=== PATIENT | female | born 1995 | race Caucasian/White ===

== ENCOUNTER 2020-01-30 13:35 | Inpatient (IN) | payer BC ==
[2020-01-30] MEDS ORDERED: Ondansetron 4 MG/2 ML SDV IVPUSH PRN (13:43)
[2020-01-30] MEDS ORDERED: Sodium Chloride 0.9% 10 ML Syringe FLUSH PRN (13:43)
[2020-01-30] MEDS ORDERED: Nalbuphine 10 MG/ML Syringe IVPUSH PRN (13:43)
[2020-01-30] MEDS ORDERED: Misoprostol 100 MCG Tab VAG PRN (13:43)
[2020-01-30] MEDS ORDERED: Oxytocin/Lactated Ringers 10 UNIT/1,000 ML BAG IV SCH ×2 (13:45)
--- NOTE | 2020-01-30 13:45 | PCM.LDHP ---
L&D History of Present Illness - General Date of Service: 01/30/20 Admit Problem/Dx: Patient Status Order with Admit Dx/Problem 01/30/20 13:43 Patient Status [ADT] Routine Admission Diagnosis/Problem Admission Diagnosis/Problem complications Source of Information: Patient History Limitations: Reports: No Limitations - History of Present Illness Introduction:: Patient is a 24-year-old at 38-2/7 weeks gestation. Patient seen for routine clinic appointment today. Has been consistently measuring about 2 cm below gestational age, but within accepted ranges. However, patient's overall weight gain has been less than then normal period started the at 127 and is currently 139 pounds. Most notable is that since about 33 weeks has had no increase in weight. Ultrasound done today to follow up this finding and showed overall AB measured at the 12th percentile, but the abdominal circumference at the 10th. Concern was for potential growth restriction. She was counseled on this finding and instructed to present here for induction. Doing well otherwise Past Medical History Respiratory History: Reports: Asthma Gastrointestinal History: Reports: Gastritis (history of), GERD Psychiatric History: Reports: Anxiety, Depression - Past Surgical History HEENT Surgical History: Reports: Myringotomy w Tube(s) GI Surgical History: Reports: Cholecystectomy, EGD Social & Family History - Family History Family Medical History: Noncontributory - Tobacco Use Smoking Status *Q: Never Smoker - Alcohol Use Alcohol Use History: No - Recreational Drug Use Recreational Drug Use: No H&P Review of Systems - Review of Systems: Review Of Systems: See Below General: Reports: No Symptoms Pulmonary: Reports: No Symptoms Cardiovascular: Reports: No Symptoms Gastrointestinal: Reports: No Symptoms Genitourinary: Reports: No Symptoms Musculoskeletal: Reports: No Symptoms Psychiatric: Reports: No Symptoms Neurological: Reports: No Symptoms L&D Exam - Exam Exam: See Below - OB Specific Contraction Intensity: Irritability Movement: Active Heart Tones: Present Heart Tones per Min: 130 Heart Rate (FHR) Variability: Moderate (6-25 bmp) Presentation: Vertex - Goodrich Score Goodrich Score Cervix Position: Midposition Goodrich Score Consistency: Soft Goodrich Score Effacement: 51-70% Goodrich Score Dilation: 1-2 cm Goodrich Score Infant's Station: -3 Goodrich Score Total: 6 - Exam General: Alert, Oriented, Cooperative Lungs: Clear to Auscultation, Normal Respiratory Effort Cardiovascular: Regular Rate, Regular Rhythm GI/Abdominal Exam: Soft, Non-Tender Genitourinary: Normal external exam Extremities: Normal Inspection Skin: Warm, Dry, Intact - Patient Data Result Diagrams: 01/30/20 13:55 - Problem List (1) 38 weeks gestation of SNOMED Code(s): 57209297 ICD Code: Z3A.38 - 38 WEEKS GESTATION OF Status: Acute Current Visit: Yes (2) Poor growth affecting management of mother SNOMED Code(s): 526798963 ICD Code: O36.5990 - MATERN CARE FOR OTH OR SUSP POOR FETL GRTH, UNSP TRI, UNSP Status: Acute Current Visit: Yes Qualifiers: Fetus number: single or unspecified fetus Trimester: third trimester Qualified Code(s): O36.5930 - Maternal care for other known or suspected poor growth, third trimester, not applicable or unspecified (3) Low maternal weight gain SNOMED Code(s): 60462011 ICD Code: O26.10 - LOW WEIGHT GAIN IN , UNSPECIFIED TRIMESTER Status: Acute Current Visit: Yes Qualifiers: Trimester: third trimester Qualified Code(s): O26.13 - Low weight gain in , third trimester Problem List Initiated/Reviewed/Updated: Yes Orders Last 24hrs: Active Orders 24 hr Category Date Time Status Patient Status [ADT] Routine ADT 01/30/20 13:43 Ordered Communication Order [RC] ASDIRECTED Care 01/30/20 13:43 Ordered Communication Order [RC] ASDIRECTED Care 01/30/20 13:43 Ordered Communication Order [RC] ASDIRECTED Care 01/30/20 13:43 Ordered Heart Tones [RC] ASDIRECTED Care 01/30/20 13:44 Ordered Non Stress Test [RC] PER UNIT ROUTINE Care 01/30/20 13:43 Ordered Notify Provider [RC] ASDIRECTED Care 01/30/20 13:43 Ordered Notify Provider [RC] PRN Care 01/30/20 13:43 Ordered Peripheral IV Care [RC] . DIRECTED Care 01/30/20 13:44 Ordered Up ad Najma [RC] ASDIRECTED Care 01/30/20 13:44 Ordered Vaginal Exam [RC] ASDIRECTED Care 01/30/20 13:43 Ordered Vital Signs [RC] ASDIRECTED Care 01/30/20 13:43 Ordered Regular Diet [DIET] Diet 01/30/20 Lunch Ordered CBC W/O DIFF,HEMOGRAM [HEME] Routine Lab 01/30/20 13:43 Ordered RAPID PLASMA REAGIN,RPR [CHEM] Routine Lab 01/30/20 13:43 Ordered TYPE AND SCREEN [BBK] Routine Lab 01/30/20 13:43 Ordered Lactated Ringers [Ringers, Lactated] 1,000 ml Med 01/30/20 13:45 Ordered IV ASDIRECTED Nalbuphine [Nubain] Med 01/30/20 13:43 Ordered 10 mg IVPUSH Q2H PRN Ondansetron [Zofran] Med 01/30/20 13:43 Ordered 4 mg IVPUSH Q4H PRN Oxytocin/Lactated Ringers [Pitocin in LR 10 Units/1,000 Med 01/30/20 13:45 Ordered ML] 10 unit in 1,000 ml IV .CONTINUOUS Oxytocin/Lactated Ringers [Pitocin in LR 10 Units/1,000 Med 01/30/20 13:45 Ordered ML] 10 unit in 1,000 ml IV TITRATE Sodium Chloride 0.9% [Saline Flush] Med 01/30/20 13:43 Ordered 10 ml FLUSH ASDIRECTED PRN miSOPROStoL [Cytotec] Med 01/30/20 13:43 Ordered 25 mcg VAG Q4H PRN Electronic Heart Tones Ext w TOCO [WOMSER] Oth 01/30/20 13:43 Ordered Routine Electronic Heart Tones Internal [WOMSER] Per Unit Oth 01/30/20 13:43 Ordered Routine Medication Administration Instruction [OM.PC] Routine Oth 01/30/20 13:43 Ordered Peripheral IV Insertion Adult [OM.PC] Routine Oth 01/30/20 13:43 Ordered Assessment/Plan Comment:: * Labs to be done * GBS negative, no need for antibiotics * IOL to be done first with cytotec. Switch to pitocin/AROM when able * Pain management per patient preference * Anticipate
[2020-01-30] MEDS ORDERED: Calcium Carbonate 500 MG Tab.Chew PO PRN (14:27)
[2020-01-30] MEDS: Misoprostol 25 MCG (1/4 of 100 MCG) Tab VAG PRN ×3 (14:45→22:56)
--- NOTE | 2020-01-30 19:04 | PCM.PNLD ---
Labor Progress Note - VS & Meds Vital Signs: Last Vital Signs Temp 37.1 C 01/30/20 13:43 Pulse 89 01/30/20 13:43 Resp 18 01/30/20 13:43 BP 121/83 01/30/20 13:43 Pulse Ox 100 01/30/20 13:43 Active Medications: Current Medications Calcium Carbonate/Glycine (Tums) 1,000 mg PO Q2HR PRN PRN Reason: Indigestion Lactated Ringer's (Ringers, Lactated) 1,000 mls @ 40 mls/hr IV ASDIRECTED INDU Oxytocin/Lactated Ringer's (Pitocin In Lr 10 Units/1,000 Ml) 10 unit in 1,000 mls @ 12 mls/hr IV TITRATE INDU; Protocol Oxytocin/Lactated Ringer's (Pitocin In Lr 10 Units/1,000 Ml) 10 unit in 1,000 mls @ 500 mls/hr IV .CONTINUOUS INDU Misoprostol (Cytotec) 25 mcg VAG Q4H PRN PRN Reason: cervical ripening Last Admin: 01/30/20 18:59 Dose: 25 mcg Nalbuphine HCl (Nubain) 10 mg IVPUSH Q2H PRN PRN Reason: Pain Ondansetron HCl (Zofran) 4 mg IVPUSH Q4H PRN PRN Reason: Nausea/Vomiting Sodium Chloride (Saline Flush) 10 ml FLUSH ASDIRECTED PRN PRN Reason: Keep Vein Open Discontinued Medications Misoprostol (Cytotec) 25 mcg VAG Q4H PRN PRN Reason: cervical ripening - Uterine Contractions Uterine Monitoring Mode: External [place] Contraction Intensity: Irritability Uterine Resting Tone: Soft - Monitoring Monitor Mode: External Ultrasound Heart Rate (FHR) Baseline: 120 Heart Rate (FHR) Variability: Moderate (6-25 bmp) Accelerations: Present, 15x15 Decelerations: None Strip Review: Category I - Vaginal Exam Dilation (cm): 1.5 Effacement (Percent): 75 Station: Ballotable Cervical Position: Midposition - Labor Progress (Free Text) Labor Progress: Doing well. Feeling mild cramping with contractions. Will place 2nd dose of cytotec. Continue current plan otherwise per H&P
[2020-01-30] MEDS ORDERED: fentaNYL 100 MCG/2 ML SDV EPIDUR PRN (22:24)
[2020-01-30] MEDS ORDERED: Bupivacaine/fentaNYL/NS 100 ML Bag EPIDUR PRN (22:24)
[2020-01-30] MEDS ORDERED: diphenhydrAMINE 50 MG/ML SDV IVPUSH PRN (22:24)
[2020-01-31] MEDS ORDERED: Lidocaine 1.5% with EPINEPHrine 1:200,000 5 ML Amp ONE
[2020-01-31] MEDS: Lactated Ringers 1,000 ML IV SCH ×2 (03:14→05:20)
--- NOTE | 2020-01-31 05:09 | PCM.PREANE ---
Preanesthetic Assessment - Procedure Proposed Procedure: Continuous labor epidural - Anesthesia/Transfusion/Family Hx Anesthesia History: Prior Anesthesia Reaction Other Type of Anesthesia Reaction Comment: Hallucinations Transfusion History: No Prior Transfusion(s) - Review of Systems General: No Symptoms Pulmonary: No Symptoms Cardiovascular: No Symptoms Gastrointestinal: No Symptoms Neurological: No Symptoms Other: Reports: None - Physical Assessment Vital Signs: Last Vital Signs Temp 98.7 F 01/30/20 13:43 Pulse 89 01/30/20 13:43 Resp 18 01/30/20 13:43 BP 121/83 01/30/20 13:43 Pulse Ox 100 01/30/20 13:43 Height: 1.57 m Weight: 63.503 kg ASA Class: 2 Mental Status: Alert & Oriented x3 Airway Class: Mallampati = 2 Dentition: Reports: Normal Dentition Thyro-Mental Finger Breadths: 3 Mouth Opening Finger Breadths: 3 ROM/Head Extension: Full Lungs: Clear to Auscultation, Normal Respiratory Effort Cardiovascular: Regular Rate, Regular Rhythm - Lab Values: Laboratory Last Values WBC 6.62 K/mm3 (3.98-10.04) 01/30/20 13:55 RBC 4.32 M/mm3 (3.98-5.22) 01/30/20 13:55 Hgb 12.5 gm/dl (11.2-15.7) 01/30/20 13:55 Hct 37.0 % (34.1-44.9) 01/30/20 13:55 MCV 85.6 fl (79.4-94.8) 01/30/20 13:55 MCH 28.9 pg (25.6-32.2) 01/30/20 13:55 MCHC 33.8 g/dl (32.2-35.5) 01/30/20 13:55 RDW Std Deviation 39.6 fL (36.4-46.3) 01/30/20 13:55 Plt Count 222 K/mm3 (182-369) 01/30/20 13:55 MPV 8.9 fl (9.4-12.3) L 01/30/20 13:55 RPR Non-reactive (NONREACTIVE) 01/30/20 13:55 Blood Type A POSITIVE 01/30/20 13:55 Gel Antibody Screen Negative 01/30/20 13:55 - Allergies Allergies/Adverse Reactions: Allergies Allergy/AdvReac Type Severity Reaction Status Date / Time morphine Allergy Mild Other Verified 01/30/20 14:27 pseudoephedrine Allergy Mild Other Verified 01/30/20 14:27 [From [facility]] - Acknowledgements Anesthesia Type Planned: Epidural Pt an Appropriate Candidate for the Planned Anesthesia: Yes Alternatives and Risks of Anesthesia Discussed w Pt/Guardian: Yes Pt/Guardian Understands and Agrees with Anesthesia Plan: Yes PreAnesthesia Questionnaire Respiratory History: Reports: Asthma Gastrointestinal History: Reports: Gastritis (history of), GERD Genitourinary History: Reports: UTI, Recurrent MRI TECH History: Reports: , Spontaneous , Other (See Below) Other OB/BYN History: Dysmenorrhea Psychiatric History: Reports: Anxiety, Depression - Past Surgical History HEENT Surgical History: Reports: Myringotomy w Tube(s) GI Surgical History: Reports: Cholecystectomy, EGD - SUBSTANCE USE Smoking Status *Q: Never Smoker Tobacco Use Within Last Twelve Months: No Second Hand Smoke Exposure: No Recreational Drug Use History: No - HOME MEDS Home Medications: Home Meds Albuterol Sulfate [Albuterol Sulfate Hfa] 8.5 gm IH ASDIRECTED PRN 01/30/20 [ History] Cetirizine [ZyrTEC] 10 mg PO DAILY 01/30/20 [History] Ondansetron [Zofran] 8 mg PO Q8H 01/30/20 [History] Prenat 115/Iron Fum/Folic/Dss [ 19 Tablet] 1 tab PO DAILY 01/30/20 [ History] polyethylene glycoL 3350 [MiraLAX] 17 gm PO ASDIRECTED PRN 01/30/20 [History] - CURRENT (IN HOUSE) MEDS Current Meds: Current Medications Calcium Carbonate/Glycine (Tums) 1,000 mg PO Q2HR PRN PRN Reason: Indigestion Diphenhydramine HCl (Benadryl) 25 mg IVPUSH Q6H PRN PRN Reason: pruritis Fentanyl (Sublimaze) 100 mcg EPIDUR Q3H PRN PRN Reason: Pain Fentanyl/Bupivacaine HCl (Fentanyl/Bupivacaine/Ns 2 Mcg-0.125% 100 Ml) 100 ml EPIDUR ASDIRECTED PRN PRN Reason: Pain Lactated Ringer's (Ringers, Lactated) 1,000 mls @ 40 mls/hr IV ASDIRECTED INDU Last Infusion: 01/31/20 04:40 Dose: 999 mls/hr Oxytocin/Lactated Ringer's (Pitocin In Lr 10 Units/1,000 Ml) 10 unit in 1,000 mls @ 12 mls/hr IV TITRATE INDU; Protocol Last Titration: 01/31/20 04:04 Dose: 4 munits/min, 24 mls/hr Oxytocin/Lactated Ringer's (Pitocin In Lr 10 Units/1,000 Ml) 10 unit in 1,000 mls @ 500 mls/hr IV .CONTINUOUS INDU Nalbuphine HCl (Nubain) 10 mg IVPUSH Q2H PRN PRN Reason: Pain Last Admin: 01/31/20 03:20 Dose: 10 mg Ondansetron HCl (Zofran) 4 mg IVPUSH Q4H PRN PRN Reason: Nausea/Vomiting Last Admin: 01/31/20 03:18 Dose: 4 mg Sodium Chloride (Saline Flush) 10 ml FLUSH ASDIRECTED PRN PRN Reason: Keep Vein Open Discontinued Medications Misoprostol (Cytotec) 25 mcg VAG Q4H PRN PRN Reason: cervical ripening Misoprostol (Cytotec) 25 mcg VAG Q4H PRN PRN Reason: cervical ripening Last Admin: 01/30/20 22:56 Dose: 25 mcg
[2020-01-31] MEDS ORDERED: Misoprostol 200 MCG Tab ONE (07:29)
[2020-01-31] MEDS ORDERED: Methylergonovine 0.2 MG/1 ML Amp ONE (07:34)
[2020-01-31] MEDS ORDERED: Methylergonovine 0.2 MG/1 ML Amp IM STA (07:56)
[2020-01-31] MEDS ORDERED: Misoprostol 200 MCG Tab PO STA (07:56)
[2020-01-31] MEDS ORDERED: ceFAZolin 2 GM in Premix Bag 1 BAG IV ONE (07:58)
--- NOTE | 2020-01-31 07:59 | PCM.DEL ---
L & D Note - General Info Date of Service: 01/31/20 - Delivery Note Labor: Induced by Oxytocin Cervical Ripening Method: Misoprostil Delivery Outcome: Livebirth Delivery Method: Spontaneous Vaginal Delivery-Single Delivery Mode: Spontaneous Presentation: Right Occiput Anterior (SAMANTHA) Nuchal Cord: None Anesthesia Type: Epidural Amniotic Fluid Description: Clear Episiotomy Type: None Laceration: 1st Degree Suture type: Vicryl Suture size: 2-0 Placenta: Intact, Spontaneous Cord: 3 Vessels Estimated Blood Loss: 600 Resuscitation Needed: Yes : Bulb Syringe, Stimulated, Warmed, [place] Used, Warmer Used Delivery Comments (Free Text/Narrative):: Patient found to be complete and began pushing. With maternal pushing effort head delivered from SAMANTHA presentation. No nuchal cord present. With gentle downward traction shoulders and body delivered. Infant placed on maternal abdomen. Cord clamped and cut. Cord blood obtained. Placenta allowed time to separate and expelled intact. Patient with poor uterine tone and associated continued bleeding after placenta delivery. Eventually responded to 600 mcg of buccal Cytotec, 0.2 mg of IM Methergine, and 1,000 of tranexamic acid in addition to fundal massage and sweeps of uterine cavity. Patient given dose of Ancef for this. Afterwards perineum showed 1st degree laceration which was repaired with interrupted suture of 0 Vicryl. - General Info Date of Service: 01/31/20 - Patient Data Vitals - Most Recent: Last Vital Signs Temp 37.1 C 01/30/20 13:43 Pulse 89 01/30/20 13:43 Resp 18 01/30/20 13:43 BP 121/83 01/30/20 13:43 Pulse Ox 100 01/30/20 13:43 Weight - Most Recent: 63.503 kg I&O - Last 24 Hours: Intake & Output 01/30/20 01/31/20 01/31/20 22:59 06:59 14:59 Intake Total 0 1000 Balance 0 1000 Lab Results Last 24 Hours: - Problem List & Annotations (1) 38 weeks gestation of SNOMED Code(s): 88972278 Code(s): Z3A.38 - 38 WEEKS GESTATION OF Status: Acute Current Visit: Yes (2) Poor growth affecting management of mother SNOMED Code(s): 221396593 Code(s): O36.5990 - MATERN CARE FOR OTH OR SUSP POOR FETL GRTH, UNSP TRI, UNSP Status: Acute Current Visit: Yes Qualifiers: Fetus number: single or unspecified fetus Trimester: third trimester Qualified Code(s): O36.5930 - Maternal care for other known or suspected poor growth, third trimester, not applicable or unspecified (3) Low maternal weight gain SNOMED Code(s): 58371387 Code(s): O26.10 - LOW WEIGHT GAIN IN , UNSPECIFIED TRIMESTER Status: Acute Current Visit: Yes Qualifiers: Trimester: third trimester Qualified Code(s): O26.13 - Low weight gain in , third trimester (4) Vaginal delivery SNOMED Code(s): 338511046 Code(s): O80 - ENCOUNTER FOR FULL-TERM UNCOMPLICATED DELIVERY Status: Acute Current Visit: Yes (5) hemorrhage SNOMED Code(s): 10415514 Code(s): O72.1 - OTHER IMMEDIATE HEMORRHAGE Status: Acute Current Visit: Yes Qualifiers: hemorrhage type: other immediate Qualified Code(s): O72.1 - Other immediate hemorrhage - Problem List Review Problem List Initiated/Reviewed/Updated: Yes - My Orders Last 24 Hours: My Active Orders 01/30/20 13:43 Patient Status [ADT] Routine Communication Order [RC] ASDIRECTED Communication Order [RC] ASDIRECTED Communication Order [RC] ASDIRECTED Notify Provider [RC] ASDIRECTED Notify Provider [RC] PRN Nalbuphine [Nubain] 10 mg IVPUSH Q2H PRN Ondansetron [Zofran] 4 mg IVPUSH Q4H PRN Sodium Chloride 0.9% [Saline Flush] 10 ml FLUSH ASDIRECTED PRN Electronic Heart Tones Ext w TOCO [WOMSER] Routine Electronic Heart Tones Internal [WOMSER] Per Unit Routine Medication Administration Instruction [OM.PC] Routine Peripheral IV Insertion Adult [OM.PC] Routine 01/30/20 13:44 Up ad Najma [RC] ASDIRECTED 01/30/20 13:45 Lactated Ringers [Ringers, Lactated] 1,000 ml IV ASDIRECTED Oxytocin/Lactated Ringers [Pitocin in LR 10 Units/1,000 ML] 10 unit in 1,000 ml IV .CONTINUOUS Oxytocin/Lactated Ringers [Pitocin in LR 10 Units/1,000 ML] 10 unit in 1,000 ml IV TITRATE 01/30/20 14:27 Calcium Carbonate [Tums] 1,000 mg PO Q2HR PRN 01/30/20 Lunch Regular Diet [DIET] 01/31/20 07:56 Methylergonovine [Methergine] 0.2 mg IM NOW STA Tranexamic Acid [Cyklokapron] 1,000 mg IVPUSH ONETIME ONE miSOPROStoL [Cytotec] 600 mcg PO NOW STA 01/31/20 07:58 ceFAZolin [Ancef] 2 gm Premix Bag 1 bag IV ONETIME - Assessment Assessment:: PPD#0 - Plan Plan:: * Will monitor bleeding closely * Breast feeding * Routine care * Discharge home in 1-2 days
[2020-01-31] MEDS ORDERED: Witch Hazel Medicated Pads 40/Jar TOP PRN (08:18)
[2020-01-31] MEDS ORDERED: Acetaminophen 325 MG Tab PO PRN (08:18)
[2020-01-31] MEDS ORDERED: Benzocaine/Menthol 20%-0.5% Spray 56 GM Canister TOP PRN (08:18)
[2020-01-31] MEDS ORDERED: Ondansetron 4 MG/2 ML SDV IVPUSH ONE (08:34)
[2020-01-31] MEDS: Docusate Sodium 100 MG Cap PO PRN ×2 (10:25→16:51)
[2020-01-31] MEDS: Ibuprofen 600 MG Tab PO PRN ×2 (10:25→16:50)
--- NOTE | 2020-02-01 07:02 | PCM.PNPP ---
- General Info Date of Service: 02/01/20 Functional Status: Reports: Pain Controlled, Tolerating Diet, Ambulating, Urinating - Review of Systems General: Reports: No Symptoms Pulmonary: Reports: No Symptoms Cardiovascular: Reports: No Symptoms Gastrointestinal: Reports: No Symptoms Genitourinary: Reports: No Symptoms Musculoskeletal: Reports: No Symptoms Neurological: Reports: No Symptoms - Patient Data Vital Signs - Most Recent: Last Vital Signs Temp 36.5 C 02/01/20 04:15 Pulse 70 02/01/20 04:15 Resp 16 02/01/20 04:15 BP 101/58 L 02/01/20 04:15 Pulse Ox 99 02/01/20 04:15 Weight - Most Recent: 63.503 kg I&O - Last 24 Hours: Intake & Output 01/31/20 02/01/20 02/01/20 22:59 06:59 14:59 Intake Total 160 Balance 160 Med Orders - Current: Current Medications Acetaminophen (Tylenol) 650 mg PO Q4H PRN PRN Reason: mild pain or fever Benzocaine/Menthol (Dermoplast Pain Relief [place]) 0 gm TOP ASDIRECTED PRN PRN Reason: Perineal Comfort Measure Last Admin: 01/31/20 10:25 Dose: 1 can Docusate Sodium (Colace) 100 mg PO BID PRN PRN Reason: Constipation Last Admin: 01/31/20 16:51 Dose: 100 mg Ibuprofen (Motrin) 600 mg PO Q6H PRN PRN Reason: Mild pain or fever Last Admin: 01/31/20 16:50 Dose: 600 mg Witch Carine (Tucks) 1 pad TOP ASDIRECTED PRN PRN Reason: Perineal Comfort Measure Last Admin: 01/31/20 10:24 Dose: 1 container Discontinued Medications Calcium Carbonate/Glycine (Tums) 1,000 mg PO Q2HR PRN PRN Reason: Indigestion Diphenhydramine HCl (Benadryl) 25 mg IVPUSH Q6H PRN PRN Reason: pruritis Fentanyl (Sublimaze) 100 mcg EPIDUR Q3H PRN PRN Reason: Pain Last Admin: 01/31/20 05:17 Dose: 100 mcg Fentanyl/Bupivacaine HCl (Fentanyl/Bupivacaine/Ns 2 Mcg-0.125% 100 Ml) 100 ml EPIDUR ASDIRECTED PRN PRN Reason: Pain Last Admin: 01/31/20 05:18 Dose: 100 ml Lactated Ringer's (Ringers, Lactated) 1,000 mls @ 40 mls/hr IV ASDIRECTED INDU Last Infusion: 01/31/20 06:28 Dose: Infused Oxytocin/Lactated Ringer's (Pitocin In Lr 10 Units/1,000 Ml) 10 unit in 1,000 mls @ 12 mls/hr IV TITRATE INDU; Protocol Last Titration: 01/31/20 06:20 Dose: 6 munits/min, 36 mls/hr Oxytocin/Lactated Ringer's (Pitocin In Lr 10 Units/1,000 Ml) 10 unit in 1,000 mls @ 500 mls/hr IV .CONTINUOUS INDU Cefazolin Sodium/Dextrose 2 gm (/ Premix) 50 mls @ 100 mls/hr IV ONETIME ONE Stop: 01/31/20 08:27 Last Admin: 01/31/20 09:31 Dose: 100 mls/hr Lidocaine/Epinephrine (Xylocaine-Mpf 1.5% W/Epinephrine 1:200,000) 5 ml .ROUTE .STK-MED ONE Stop: 01/31/20 00:01 Methylergonovine Maleate (Methergine) Confirm Administered Dose 0.2 mg .ROUTE .STK-MED ONE Stop: 01/31/20 07:35 Last Admin: 01/31/20 07:34 Dose: 0.2 mg Methylergonovine Maleate (Methergine) 0.2 mg IM NOW STA Stop: 01/31/20 07:57 Last Admin: 01/31/20 08:15 Dose: Not Given Misoprostol (Cytotec) 25 mcg VAG Q4H PRN PRN Reason: cervical ripening Misoprostol (Cytotec) 25 mcg VAG Q4H PRN PRN Reason: cervical ripening Last Admin: 01/30/20 22:56 Dose: 25 mcg Misoprostol (Cytotec) Confirm Administered Dose 600 mcg .ROUTE .STK-MED ONE Stop: 01/31/20 07:30 Last Admin: 01/31/20 07:30 Dose: 600 mcg Misoprostol (Cytotec) 600 mcg PO NOW STA Stop: 01/31/20 07:57 Last Admin: 01/31/20 08:15 Dose: Not Given Nalbuphine HCl (Nubain) 10 mg IVPUSH Q2H PRN PRN Reason: Pain Last Admin: 01/31/20 03:20 Dose: 10 mg Ondansetron HCl (Zofran) 4 mg IVPUSH Q4H PRN PRN Reason: Nausea/Vomiting Last Admin: 01/31/20 03:18 Dose: 4 mg Ondansetron HCl (Zofran) 4 mg IVPUSH ONETIME ONE Stop: 01/31/20 08:35 Last Admin: 01/31/20 08:42 Dose: 4 mg Sodium Chloride (Saline Flush) 10 ml FLUSH ASDIRECTED PRN PRN Reason: Keep Vein Open Tranexamic Acid (Cyklokapron) Confirm Administered Dose 1,000 mg .ROUTE .STK- MED ONE Stop: 01/31/20 07:37 Last Admin: 01/31/20 07:41 Dose: 1,000 mg Tranexamic Acid (Cyklokapron) 1,000 mg IVPUSH ONETIME ONE Stop: 01/31/20 07:57 Last Admin: 01/31/20 08:15 Dose: Not Given - Infant Interaction Infant Disposition, : in Room with Family Interaction: Holding Feeding: Attempted ; Nursed Fair/Poor Support Person: - Recovery Exam Fundal Tone: Firm Fundal Level: 1 Fingerbreadths Below Umbilicus Fundal Placement: Midline Lochia Amount: Small Lochia Color: Rubra/Red Perineum Description: Intact, Minimal Bruising/Swelling Episiotomy/Laceration: None Bladder Status: Voiding Urinary Elimination: Voided - Exam General: Alert, Oriented, Cooperative GI/Abdominal Exam: Soft, Non-Tender Extremities: Normal Inspection Skin: Warm, Dry, Intact - Problem List & Annotations (1) 38 weeks gestation of SNOMED Code(s): 89531019 Code(s): Z3A.38 - 38 WEEKS GESTATION OF Status: Acute Current Visit: Yes (2) Poor growth affecting management of mother SNOMED Code(s): 043873258 Code(s): O36.5990 - MATERN CARE FOR OTH OR SUSP POOR FETL GRTH, UNSP TRI, UNSP Status: Acute Current Visit: Yes Qualifiers: Fetus number: single or unspecified fetus Trimester: third trimester Qualified Code(s): O36.5930 - Maternal care for other known or suspected poor growth, third trimester, not applicable or unspecified (3) Low maternal weight gain SNOMED Code(s): 87702051 Code(s): O26.10 - LOW WEIGHT GAIN IN , UNSPECIFIED TRIMESTER Status: Acute Current Visit: Yes Qualifiers: Trimester: third trimester Qualified Code(s): O26.13 - Low weight gain in , third trimester (4) Vaginal delivery SNOMED Code(s): 275288510 Code(s): O80 - ENCOUNTER FOR FULL-TERM UNCOMPLICATED DELIVERY Status: Acute Current Visit: Yes (5) hemorrhage SNOMED Code(s): 58528298 Code(s): O72.1 - OTHER IMMEDIATE HEMORRHAGE Status: Acute Current Visit: Yes Qualifiers: hemorrhage type: other immediate Qualified Code(s): O72.1 - Other immediate hemorrhage - Problem List Review Problem List Initiated/Reviewed/Updated: Yes - My Orders Last 24 Hours: My Active Orders 01/31/20 08:18 Activity as Tolerated [RC] PER UNIT ROUTINE Vital Signs [RC] 09,15,21,03 Acetaminophen [Tylenol] 650 mg PO Q4H PRN Benzocaine/Menthol [Dermoplast Pain Relief [place]] See Dose Instructions TOP ASDIRECTED PRN Docusate Sodium [Colace] 100 mg PO BID PRN Ibuprofen [Motrin] 600 mg PO Q6H PRN witch Carine [Tucks] 1 pad TOP ASDIRECTED PRN Assess Lochia [WOMSER] Per Unit Routine Assess Uterine Involution [WOMSER] Per Unit Routine Breast Pump [WOMSER] Per Unit Routine Heat Therapy [OM.PC] PRN Ice Therapy [OM.PC] Per Unit Routine Perineal Care [OM.PC] Per Unit Routine Peripheral IV Discontinue [OM.PC] Routine Sitz Bath [OM.PC] Per Unit Routine 01/31/20 Breakfast Regular Diet [DIET] 02/01/20 08:18 Heat Therapy [OM.PC] PRN - Assessment Assessment:: PPD#1 - Plan Plan:: * Breast feeding * Routine care * Feeling well after PPH * Discharge home tomorrow
--- NOTE | 2020-02-01 08:59 | PCM.DCSUM1 ---
Discharge Summary - Discharge Data Discharge Date: 02/01/20 Discharge Disposition: Home, Self-Care 01 Condition: Good - Referral to Home Health Primary Care Physician: Forrest Underwood MD - Discharge Diagnosis/Problem(s) (1) 38 weeks gestation of SNOMED Code(s): 04078199 ICD Code: Z3A.38 - 38 WEEKS GESTATION OF Status: Acute Current Visit: Yes (2) Poor growth affecting management of mother SNOMED Code(s): 783540739 ICD Code: O36.5990 - MATERN CARE FOR OTH OR SUSP POOR FETL GRTH, UNSP TRI, UNSP Status: Acute Current Visit: Yes Qualifiers: Fetus number: single or unspecified fetus Trimester: third trimester Qualified Code(s): O36.5930 - Maternal care for other known or suspected poor growth, third trimester, not applicable or unspecified (3) Low maternal weight gain SNOMED Code(s): 27695133 ICD Code: O26.10 - LOW WEIGHT GAIN IN , UNSPECIFIED TRIMESTER Status: Acute Current Visit: Yes Qualifiers: Trimester: third trimester Qualified Code(s): O26.13 - Low weight gain in , third trimester (4) Vaginal delivery SNOMED Code(s): 415042887 ICD Code: O80 - ENCOUNTER FOR FULL-TERM UNCOMPLICATED DELIVERY Status: Acute Current Visit: Yes (5) hemorrhage SNOMED Code(s): 95235560 ICD Code: O72.1 - OTHER IMMEDIATE HEMORRHAGE Status: Acute Current Visit: Yes Qualifiers: hemorrhage type: other immediate Qualified Code(s): O72.1 - Other immediate hemorrhage - Patient Summary/Data Complications: None Consults: None Recommended Follow-up Testing/Procedures: Follow up in 3 weeks for check Hospital Course: 24 y/o at 38 2/7 wks who presented for IOL for concerns of IUGR on late growth US. Induction done with cytotec and pitocin. Progressed well to complete dilation. Underwent an vaginal delivery which was notable for PPH. See delivery note for full details. did well and was discharged home on PPD#1 - Patient Instructions Diet: Regular Diet as Tolerated Activity: As Tolerated Activity, Other: Pelvic rest for 6 weeks Driving: May Drive Today Showering/Bathing: May Shower Showering/Bathing, Other: May Bathe Notify Provider of: Fever, Increased Pain, Swelling and Redness, Drainage, Nausea and/or Vomiting - Discharge Plan *PRESCRIPTION DRUG MONITORING PROGRAM REVIEWED*: No *COPY OF PRESCRIPTION DRUG MONITORING REPORT IN PATIENT NIKHIL: No Home Medications: Home Meds Albuterol Sulfate [Albuterol Sulfate Hfa] 8.5 gm IH ASDIRECTED PRN 01/30/20 [ History] Cetirizine [ZyrTEC] 10 mg PO DAILY 01/30/20 [History] Ondansetron [Zofran] 8 mg PO Q8H 01/30/20 [History] Prenat 115/Iron Fum/Folic/Dss [ 19 Tablet] 1 tab PO DAILY 01/30/20 [ History] polyethylene glycoL 3350 [MiraLAX] 17 gm PO ASDIRECTED PRN 01/30/20 [History] Docusate Sodium [Colace] 100 mg PO BID PRN cap 02/01/20 [Rx] Ibuprofen [Motrin] 600 mg PO Q6H PRN tablet 02/01/20 [Rx] Patient Handouts: Tips for a Good Latch, [id number], Care After Vaginal Delivery Referrals: Lakisha Hurtado MD [Physician] - (3 weeks for check - can be telemed) - Discharge Summary/Plan Comment DC Time >30 min.: No - Patient Data Vitals - Most Recent: Last Vital Signs Temp 36.6 C 02/01/20 08:30 Pulse 74 02/01/20 08:30 Resp 14 02/01/20 08:30 BP 109/82 02/01/20 08:30 Pulse Ox 97 02/01/20 08:30 Weight - Most Recent: 63.503 kg I&O - Last 24 hours: Intake & Output 01/31/20 02/01/20 02/01/20 22:59 06:59 14:59 Intake Total 160 Balance 160 Med Orders - Current: Current Medications Acetaminophen (Tylenol) 650 mg PO Q4H PRN PRN Reason: mild pain or fever Benzocaine/Menthol (Dermoplast Pain Relief [facility]) 0 gm TOP ASDIRECTED PRN PRN Reason: Perineal Comfort Measure Last Admin: 01/31/20 10:25 Dose: 1 can Docusate Sodium (Colace) 100 mg PO BID PRN PRN Reason: Constipation Last Admin: 01/31/20 16:51 Dose: 100 mg Ibuprofen (Motrin) 600 mg PO Q6H PRN PRN Reason: Mild pain or fever Last Admin: 01/31/20 16:50 Dose: 600 mg [place] (Tucks) 1 pad TOP ASDIRECTED PRN PRN Reason: Perineal Comfort Measure Last Admin: 01/31/20 10:24 Dose: 1 container Discontinued Medications Calcium Carbonate/Glycine (Tums) 1,000 mg PO Q2HR PRN PRN Reason: Indigestion Diphenhydramine HCl (Benadryl) 25 mg IVPUSH Q6H PRN PRN Reason: pruritis Fentanyl (Sublimaze) 100 mcg EPIDUR Q3H PRN PRN Reason: Pain Last Admin: 01/31/20 05:17 Dose: 100 mcg Fentanyl/Bupivacaine HCl (Fentanyl/Bupivacaine/Ns 2 Mcg-0.125% 100 Ml) 100 ml EPIDUR ASDIRECTED PRN PRN Reason: Pain Last Admin: 01/31/20 05:18 Dose: 100 ml Lactated Ringer's (Ringers, Lactated) 1,000 mls @ 40 mls/hr IV ASDIRECTED INDU Last Infusion: 01/31/20 06:28 Dose: Infused Oxytocin/Lactated Ringer's (Pitocin In Lr 10 Units/1,000 Ml) 10 unit in 1,000 mls @ 12 mls/hr IV TITRATE INDU; Protocol Last Titration: 01/31/20 06:20 Dose: 6 munits/min, 36 mls/hr Oxytocin/Lactated Ringer's (Pitocin In Lr 10 Units/1,000 Ml) 10 unit in 1,000 mls @ 500 mls/hr IV .CONTINUOUS INDU Cefazolin Sodium/Dextrose 2 gm (/ Premix) 50 mls @ 100 mls/hr IV ONETIME ONE Stop: 01/31/20 08:27 Last Admin: 01/31/20 09:31 Dose: 100 mls/hr Lidocaine/Epinephrine (Xylocaine-Mpf 1.5% W/Epinephrine 1:200,000) 5 ml .ROUTE .STK-MED ONE Stop: 01/31/20 00:01 Methylergonovine Maleate (Methergine) Confirm Administered Dose 0.2 mg .ROUTE .STK-MED ONE Stop: 01/31/20 07:35 Last Admin: 01/31/20 07:34 Dose: 0.2 mg Methylergonovine Maleate (Methergine) 0.2 mg IM NOW STA Stop: 01/31/20 07:57 Last Admin: 01/31/20 08:15 Dose: Not Given Misoprostol (Cytotec) 25 mcg VAG Q4H PRN PRN Reason: cervical ripening Misoprostol (Cytotec) 25 mcg VAG Q4H PRN PRN Reason: cervical ripening Last Admin: 01/30/20 22:56 Dose: 25 mcg Misoprostol (Cytotec) Confirm Administered Dose 600 mcg .ROUTE .STK-MED ONE Stop: 01/31/20 07:30 Last Admin: 01/31/20 07:30 Dose: 600 mcg Misoprostol (Cytotec) 600 mcg PO NOW STA Stop: 01/31/20 07:57 Last Admin: 01/31/20 08:15 Dose: Not Given Nalbuphine HCl (Nubain) 10 mg IVPUSH Q2H PRN PRN Reason: Pain Last Admin: 01/31/20 03:20 Dose: 10 mg Ondansetron HCl (Zofran) 4 mg IVPUSH Q4H PRN PRN Reason: Nausea/Vomiting Last Admin: 01/31/20 03:18 Dose: 4 mg Ondansetron HCl (Zofran) 4 mg IVPUSH ONETIME ONE Stop: 01/31/20 08:35 Last Admin: 01/31/20 08:42 Dose: 4 mg Sodium Chloride (Saline Flush) 10 ml FLUSH ASDIRECTED PRN PRN Reason: Keep Vein Open Tranexamic Acid (Cyklokapron) Confirm Administered Dose 1,000 mg .ROUTE .STK- MED ONE Stop: 01/31/20 07:37 Last Admin: 01/31/20 07:41 Dose: 1,000 mg Tranexamic Acid (Cyklokapron) 1,000 mg IVPUSH ONETIME ONE Stop: 01/31/20 07:57 Last Admin: 01/31/20 08:15 Dose: Not Given
--- NOTE | 2020-02-01 09:04 | PCM48HPAN ---
Post Anesthesia Note - EVALUATION WITHIN 48HRS OF ANESTHETIC Vital Signs in Normal Range: Yes Patient Participated in Evaluation: Yes Respiratory Function Stable: Yes Airway Patent: Yes Cardiovascular Function Stable: Yes Hydration Status Stable: Yes Pain Control Satisfactory: Yes Nausea and Vomiting Control Satisfactory: Yes Mental Status Recovered: Yes Vital Signs: Last Vital Signs Temp 36.6 C 02/01/20 08:30 Pulse 74 02/01/20 08:30 Resp 14 02/01/20 08:30 BP 109/82 02/01/20 08:30 Pulse Ox 97 02/01/20 08:30
== END 2020-02-01 16:50 | disposition home or self-care (01) | DRG 560 ==
LOC: JD.OBCHECK 13:35 → JD.OB 13:43 → OBSVTOIN 01-31 07:22 → JD.OB 01-31 08:01
PROVIDERS: ADMIT Obstetrics & Gynecology; ATTEND Obstetrics & Gynecology
PROC: 10E0XZZ Delivery of Products of Conception, External Approach (ICD-10-PCS; principal; 2020-01-31)
PROC: 3E0P7VZ Introduction of Hormone into Female Reproductive, Via Natural or Artificial Opening (ICD-10-PCS; 2020-01-31)
PROC: 3E033VJ Introduction of Other Hormone into Peripheral Vein, Percutaneous Approach (ICD-10-PCS; 2020-01-31)
PROC: 3E0R3BZ Introduction of Anesthetic Agent into Spinal Canal, Percutaneous Approach (ICD-10-PCS; 2020-01-31)
PROC: 0HQ9XZZ Repair Perineum Skin, External Approach (ICD-10-PCS; 2020-01-31)
DX: O36.5930 Maternal care for other known or suspected poor fetal growth, third trimester, not applicable or unspecified (principal); O26.13 Low weight gain in pregnancy, third trimester; Z3A.38 38 weeks gestation of pregnancy; O72.1 Other immediate postpartum hemorrhage; Z79.899 Other long term (current) drug therapy; O70.0 First degree perineal laceration during delivery; Z37.0 Single live birth
CPT/HCPCS: 36415; 51701; 51702; 59025; 59409; 85027; 86592; 86850; 86900; 86901; A9270-GY; J0690; J2210; J2300; J2405; J2590; J3010; J7120

== ENCOUNTER 2021-04-19 19:02 | Emergency (ER) | payer BC ==
--- NOTE | 2021-04-19 20:24 | CR ---
Left ankle: 4 views of the left ankle were obtained. Comparison: No prior ankle study is available. Ankle mortise is symmetric. No acute fracture, dislocation or other bony abnormality is appreciated. Impression: 1. Nothing acute is seen on left ankle exam. Diagnostic code #1
--- NOTE | 2021-04-19 20:40 | EDM.PDOC ---
ED HPI GENERAL MEDICAL PROBLEM - General Chief Complaint: Lower Extremity Injury/Pain Stated Complaint: INJURED LEFT ANKLE Time Seen by Provider: 04/19/21 19:27 Source of Information: Reports: Patient, RN Notes Reviewed History Limitations: Reports: No Limitations - History of Present Illness INITIAL COMMENTS - FREE TEXT/NARRATIVE: Patient is a 25-year-old female presenting to the emergency department with complaints of pain and swelling to her left ankle. Reports that she rolled the ankle twice today. After the first incident, she was able to walk on it, however it was uncomfortable. Later in the day, she was getting her daughter out of the car seat in the truck when she stepped back and her ankle gave out. She is unsure of the mechanism of the fall as she was trying to prevent her daughter from getting injured during the fall. She has been unable to bear weight on the ankle since the time of the injury. 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 Has some minor tingling distal to this extremity but does have full sensation and movement. Treatments STAFF DEVELOPER: Reports: Other (see below) Other Treatments STAFF DEVELOPER: none Left Ankle Pain Score (Numeric/FACES): 8 - Related Data Allergies Allergy/AdvReac Type Severity Reaction Status Date / Time morphine Allergy Mild Other Verified 01/30/20 14:27 pseudoephedrine Allergy Mild Other Verified 01/30/20 14:27 [From [facility]] Home Meds: Home Meds Albuterol Sulfate [Albuterol Sulfate Hfa] 8.5 gm IH ASDIRECTED PRN 01/30/20 [History] Cetirizine [ZyrTEC] 10 mg PO DAILY 01/30/20 [History] polyethylene glycoL 3350 [MiraLAX] 17 gm PO ASDIRECTED PRN 01/30/20 [History] Ibuprofen [Motrin] 600 mg PO Q6H PRN tablet 02/01/20 [Rx] Past Medical History Respiratory History: Reports: Asthma Gastrointestinal History: Reports: Gastritis, GERD Genitourinary History: Reports: UTI, Recurrent TAIL SAWYER History: Reports: , Spontaneous , Other (See Below) Other TAIL SAWYER History: Dysmenorrhea Psychiatric History: Reports: Anxiety, Depression - Past Surgical History HEENT Surgical History: Reports: Myringotomy w Tube(s) Respiratory Surgical History: Reports: None GI Surgical History: Reports: Cholecystectomy, EGD Female Surgical History: Reports: None Social & Family History - Family History Family Medical History: No Pertinent Family History - Tobacco Use Tobacco Use Status *Q: Never Tobacco User - Caffeine Use Caffeine Use: Reports: Coffee, Tea - Recreational Drug Use Recreational Drug Use: No Review of Systems - Review of Systems Review Of Systems: Comprehensive ROS is negative, except as noted in HPI. ED EXAM, GENERAL - Physical Exam Exam: See Below General Appearance: Alert, WD/WN, No Apparent Distress Respiratory/Chest: No Respiratory Distress, Lungs Clear, Normal Breath Sounds, No Accessory Muscle Use, Chest Non-Tender Cardiovascular: Normal Peripheral Pulses, Regular Rate, Rhythm, No Edema, No Gallop, No JVD, No Murmur, No Rub Extremities: Other (Swelling, and tenderness to palpation overlying the lateral malleolus of the right ankle. No obvious deformity or ecchymosis.) Neurological: Alert, Oriented, CN II-XII Intact, Normal Cognition, Normal Gait, Normal Reflexes, No Motor/Sensory Deficits Psychiatric: Normal Affect, Normal Mood Skin Exam: Warm, Dry, Intact, Normal Color, No Rash Course - Vital Signs Last Recorded V/S: Last Vital Signs Temp 98.2 F 04/19/21 19:30 Pulse 85 04/19/21 19:30 Resp 20 04/19/21 19:30 BP 130/85 04/19/21 19:30 Pulse Ox 100 04/19/21 19:30 - Re-Assessments/Exams Free Text/Narrative Re-Assessment/Exam: 04/19/21 20:38 X-ray of the foot ankle interpretation is radiologist shows no acute abnormalities. Discussed with patient that she likely sprained her ankle. She will be placed in an air splint and provided crutches. Discharge instructions as documented. Departure - Departure Time of Disposition: 20:38 Disposition: Home, Self-Care 01 Condition: Good Clinical Impression: Ankle sprain Qualifiers: Encounter type: initial encounter Involved ligament of ankle: unspecified ligament Laterality: left Qualified Code(s): S93.402A - Sprain of unspecified ligament of left ankle, initial encounter - Discharge Information *PRESCRIPTION DRUG MONITORING PROGRAM REVIEWED*: No *COPY OF PRESCRIPTION DRUG MONITORING REPORT IN PATIENT NIKHIL: No Instructions: Ankle Sprain, [id number] Referrals: Forrest Underwood MD [Primary Care Provider] - Additional Instructions: You were seen in the emergency department today for pain and swelling to your left ankle after injuring it 2 times today. X-rays were completed and showed no acute fractures. As we discussed, you have sprained your ankle. You have been provided with an air splint and crutches. Recommend that she be nonweightbearing for the next couple days. Ice and elevate the extremity at rest. You may use Tylenol or ibuprofen as needed for discomfort. After a few days, you may gradually begin to support weight on it with the use of crutches and thereafter walk on it as tolerated without crutches. If you are still having significant amount of pain with little improvement towards the end of next week, recommend follow-up in the clinic. Return to ER with any new or worsening symptoms. Sepsis Event Note (ED) - Evaluation Sepsis Screening Result: No Definite Risk - Focused Exam Vital Signs: Vital Signs Temp Pulse Resp BP Pulse Ox 04/19/21 19:30 98.2 F 85 20 130/85 100
== END 2021-04-19 21:00 | disposition home or self-care (01) ==
LOC: JD.ED 19:02
DX: S93.402A Sprain of unspecified ligament of left ankle, initial encounter (principal); J45.909 Unspecified asthma, uncomplicated; Z88.8 Allergy status to other drugs, medicaments and biological substances; Z88.5 Allergy status to narcotic agent; Z79.899 Other long term (current) drug therapy; X50.1XXA Overexertion from prolonged static or awkward postures, initial encounter
CPT/HCPCS: 73610-26-LT; 73610-LT; 99282; 99283-25

== ENCOUNTER 2022-02-13 07:02 | Inpatient (IN) | payer BC ==
[2022-02-13] MEDS ORDERED: Nalbuphine HCl 10 MG/ 1ML Amp IVPUSH PRN (07:11)
[2022-02-13] MEDS ORDERED: Sodium Chloride 0.9% 10 ML Syringe FLUSH PRN (07:11)
[2022-02-13] MEDS ORDERED: Ondansetron 4 MG/2 ML SDV IVPUSH PRN (07:11)
[2022-02-13] MEDS ORDERED: Lactated Ringers 1,000 ML IV SCH (07:15)
[2022-02-13] MEDS ORDERED: Oxytocin/Lactated Ringers 10 UNIT/1,000 ML BAG IV SCH ×2 (07:15)
[2022-02-13] MEDS ORDERED: Sodium Chloride 0.9% 10 ML Syringe FLUSH SCH (09:00)
[2022-02-13] MEDS ORDERED: Ibuprofen 600 MG Tab PO PRN (13:30)
[2022-02-13] MEDS ORDERED: Docusate Sodium 100 MG Cap PO PRN (13:30)
[2022-02-13] MEDS ORDERED: Acetaminophen 325 MG Tab PO PRN (13:30)
[2022-02-13] MEDS ORDERED: Witch Hazel Medicated Pads 40/Jar TOP PRN (13:30)
[2022-02-13] MEDS ORDERED: Benzocaine/Menthol 20%-0.5% Spray 78 GM Cannister TOP PRN (13:30)
== END 2022-02-14 12:41 | disposition home or self-care (01) | DRG 560 ==
LOC: JD.OB 07:02 → INTOOBSV 07:02 → OBSVTOIN 13:01 → JD.OB 13:01
PROVIDERS: ADMIT Obstetrics & Gynecology; ATTEND Obstetrics & Gynecology
PROC: 10E0XZZ Delivery of Products of Conception, External Approach (ICD-10-PCS; principal; 2022-02-13)
PROC: 10907ZC Drainage of Amniotic Fluid, Therapeutic from Products of Conception, Via Natural or Artificial Opening (ICD-10-PCS; 2022-02-13)
PROC: 3E033VJ Introduction of Other Hormone into Peripheral Vein, Percutaneous Approach (ICD-10-PCS; 2022-02-13)
DX: O99.52 Diseases of the respiratory system complicating childbirth (principal); J45.909 Unspecified asthma, uncomplicated; Z3A.39 39 weeks gestation of pregnancy; Z37.0 Single live birth; Z88.5 Allergy status to narcotic agent; Z88.8 Allergy status to other drugs, medicaments and biological substances; Z90.49 Acquired absence of other specified parts of digestive tract
CPT/HCPCS: 36415; 59025; 59409; 85025; 86592; 86850; 86900; 86901; J2590; J7120

== ENCOUNTER 2023-10-05 00:56 | Inpatient (IN) | payer OTHER ==
[2023-10-05] MEDS ORDERED: Acetaminophen 325 MG Tab PO PRN (19:04)
[2023-10-05] MEDS ORDERED: Nalbuphine HCl 10 MG/ 1ML Amp IVPUSH PRN (19:04)
[2023-10-05] MEDS ORDERED: Lidocaine 1% 50 ML MDV INJECT PRN (19:04)
[2023-10-05] MEDS ORDERED: Ondansetron 4 MG/2 ML SDV IVPUSH PRN (19:04)
[2023-10-05] MEDS ORDERED: Sodium Chloride 0.9% 10 ML Syringe FLUSH PRN (19:04)
[2023-10-05] MEDS ORDERED: Lactated Ringers 1,000 ML IV SCH (19:15)
[2023-10-05] MEDS ORDERED: Oxytocin/Lactated Ringers 30 UNIT/500 ML BAG IV SCH ×2 (19:15)
[2023-10-05 19:39] LABS: BASOPHILS PERCENT AUTO 0.6 % (0.0-1.0); EOSINOPHILS PERCENT AUTO 0.5 % (0.0-6.0); HEMATOCRIT 34.3 % (37.0-47.0); HEMOGLOBIN 11.8 gm/dl (12.0-16.0); IMMATURE GRAN ABSOLUTE AUTO 0.04 K/mm3 (0.00-0.05); IMMATURE GRAN PERCENT AUTO 0.6 % (0.0-0.4); LYMPHOCYTES PERCENT AUTO 30.8 % (24.0-44.0); MEAN CORPUSCULAR HEMOGLOBIN 28.2 pg (28.0-32.0); MEAN CORPUSCULAR HGB CONC 34.4 g/dl (32.0-36.0); MEAN CORPUSCULAR VOLUME 82.1 fl (83.0-99.0); MEAN PLATELET VOLUME 9.7 fl (9.4-12.3); MONOCYTES ABSOLUTE AUTO 0.4 K/mm3 (0.0-0.8); MONOCYTES PERCENT AUTO 6.5 % (0.0-8.0); NEUTROPHILS ABSOLUTE AUTO 3.9 K/mm3 (1.8-7.7); PLATELET COUNT,PLT 169 K/mm3 (150-400); RED BLOOD CELL COUNT 4.18 M/mm3 (4.10-5.30); WHITE BLOOD CELL COUNT,WBC 6.42 K/mm3 (3.9-11.3)
[2023-10-05] MEDS ORDERED: Sodium Chloride 0.9% 10 ML Syringe FLUSH SCH (21:00)
[2023-10-06] MEDS ORDERED: Benzocaine/Menthol 20%-0.5% Spray 78 GM Cannister TOP PRN (01:15)
[2023-10-06] MEDS ORDERED: Ibuprofen 600 MG Tab PO PRN (01:15)
[2023-10-06] MEDS ORDERED: Docusate Sodium 100 MG Cap PO PRN (01:15)
[2023-10-06] MEDS ORDERED: Witch Hazel Medicated Pads 40/Jar TOP PRN (01:15)
[2023-10-06] MEDS ORDERED: Acetaminophen 325 MG Tab PO PRN (01:15)
== END 2023-10-07 10:56 | disposition home or self-care (01) | DRG 807 ==
LOC: JD.OB 00:56 → OBSVTOIN 10-06 00:56 → JD.OB 10-06 00:57
PROVIDERS: ADMIT Obstetrics & Gynecology; ATTEND Obstetrics & Gynecology
PROC: 10E0XZZ Delivery of Products of Conception, External Approach (ICD-10-PCS; principal; 2023-10-06)
DX: O80 Encounter for full-term uncomplicated delivery (principal); Z37.0 Single live birth; Z3A.39 39 weeks gestation of pregnancy; Z88.5 Allergy status to narcotic agent; Z88.8 Allergy status to other drugs, medicaments and biological substances; Z90.49 Acquired absence of other specified parts of digestive tract
CPT/HCPCS: 36415; 59025; 59409; 85025; 86592; 86850; 86900; 86901; J7120; J7999